=== PATIENT | male | born 1970 | race African-American/Black ===

== ENCOUNTER 2017-03-17 20:20 | Emergency (ER) | payer SELFPAY | END 2017-03-17 21:35 | disposition home or self-care (01) | LOC: FER 20:20 | DX: S80.01XA Contusion of right knee, initial encounter (principal); I10 Essential (primary) hypertension; V49.50XA Passenger injured in collision with unspecified motor vehicles in traffic accident, initial encounter; W22.12XA Striking against or struck by front passenger side automobile airbag, initial encounter; Y92.410 Unspecified street and highway as the place of occurrence of the external cause | CPT/HCPCS: 99283 ==